=== PATIENT | female | born 1990 | race Caucasian/White ===

== ENCOUNTER → 2017-03-10 | Outpatient (CLI) | payer OTHER ==
[~2017-03-10] MED LIST: IBUPROFEN600 MG PO; NORCO 5-325 TA1 EACH PO
== END ==
LOC: LAB 11:14
DX: N91.2 Amenorrhea, unspecified (principal); R11.2 Nausea with vomiting, unspecified
CPT/HCPCS: 36415; 84702; 84703

== ENCOUNTER → 2021-04-17 | Outpatient (CLI) | payer OTHER ==
[~2021-04-17] MED LIST changes: +B-COMPLEX 100 I30 ML IM; +COLACE 100MG C100 MG PO; +IRON325 M1 PO; +KEFLEX CAP 500500 MG PO; +LORTAB 5-325 M1 EACH PO; +MACROBID 100 M100 MG PO; +PRENATAL VITAM1 EAC8 PO
== END ==
LOC: LAB 17:41
DX: Z32.00 Encounter for pregnancy test, result unknown (principal); O09.90 Supervision of high risk pregnancy, unspecified, unspecified trimester; O20.0 Threatened abortion
CPT/HCPCS: 84702

== ENCOUNTER → 2021-04-21 | Outpatient (CLI) | payer OTHER | LOC: LAB 10:29 | DX: Z32.01 Encounter for pregnancy test, result positive (principal) | CPT/HCPCS: 36415; 84702 ==

== ENCOUNTER 2021-10-20 14:32 | Outpatient (CLI) | payer OTHER | END 2021-10-20 18:23 | disposition home or self-care (01) | LOC: GENOP 14:32 | DX: O9A.213 Injury, poisoning and certain other consequences of external causes complicating pregnancy, third trimester (principal); S39.91XA Unspecified injury of abdomen, initial encounter; S39.92XA Unspecified injury of lower back, initial encounter; O36.8130 Decreased fetal movements, third trimester, not applicable or unspecified; Z3A.31 31 weeks gestation of pregnancy; W10.9XXA Fall (on) (from) unspecified stairs and steps, initial encounter | CPT/HCPCS: 81001; 83518; G0463 ==

== ENCOUNTER → 2021-11-18 | Outpatient (CLI) | payer OTHER ==
[~2021-11-18] VITALS: Ht 170.2 cm; Wt 67.6 kg
== END ==
LOC: OPSV 11:59
DX: O99.019 Anemia complicating pregnancy, unspecified trimester (principal); Z3A.00 Weeks of gestation of pregnancy not specified
CPT/HCPCS: 96365; J1756

== ENCOUNTER 2021-11-24 15:38 | Outpatient (CLI) | payer OTHER ==
[2021-11-24] MEDS ORDERED: ZOFRAN 4 MG TAB4 MG PO (19:43)
== END 2021-11-24 19:42 | disposition home or self-care (01) ==
LOC: GENOP 15:38
DX: O99.891 Other specified diseases and conditions complicating pregnancy (principal); O36.8130 Decreased fetal movements, third trimester, not applicable or unspecified; O16.3 Unspecified maternal hypertension, third trimester; N89.8 Other specified noninflammatory disorders of vagina; O21.2 Late vomiting of pregnancy; M54.9 Dorsalgia, unspecified; R25.2 Cramp and spasm; Z3A.36 36 weeks gestation of pregnancy
CPT/HCPCS: 83518; 96360; 96366; 96374; J2405; J7120

== ENCOUNTER → 2021-11-25 | Outpatient (CLI) | payer OTHER ==
[~2021-11-25] VITALS: Ht 170.2 cm; Wt 112.9 kg
[~2021-11-25] MED LIST changes: +ZOFRAN 4 MG TAB4 MG PO
== END ==
LOC: OPSV 11:33
DX: O99.019 Anemia complicating pregnancy, unspecified trimester (principal); D64.9 Anemia, unspecified; Z3A.00 Weeks of gestation of pregnancy not specified
CPT/HCPCS: 96365; J1756

== ENCOUNTER 2021-12-01 05:16 | Inpatient (IN) | payer OTHER ==
[~2021-12-01] VITALS: Ht 170.2 cm; Wt 112.9 kg
[2021-12-01 05:54] LABS: HEMOGLOBIN 9.1 gm/dl (12.3-15.3); RED BLOOD COUNT 4.16 M/UL (4.00-5.10); WHITE BLOOD COUNT 9.5 K/UL (4.5-11.0)
[2021-12-01 06:21] LABS: BUN/CREATININE RATIO 14 (0-10)
[2021-12-01] MEDS ORDERED: TYLENOL325 MG PO (06:26)
[2021-12-01] MEDS ORDERED: DOCUSATE SODIU100 MG PO (08:20)
[2021-12-01] MEDS ORDERED: HYDROCODON-ACE1 EAC4 PO (08:20)
[2021-12-01] MEDS ORDERED: IBUPROFEN600 MG PO (08:20)
[2021-12-02 06:19] LABS: HEMOGLOBIN 7.5 gm/dl (12.3-15.3)
[2021-12-02] MEDS ORDERED: FERROCITE324 MG PO (11:53)
== END 2021-12-02 17:53 | disposition home or self-care (01) | DRG 787 ==
LOC: OB 05:16
PROVIDERS: ADMIT Obstetrics & Gynecology
PROC: 10D00Z1 Extraction of Products of Conception, Low, Open Approach (ICD-10-PCS; 2021-12-01)
PROC: 3E0234Z Introduction of Serum, Toxoid and Vaccine into Muscle, Percutaneous Approach (ICD-10-PCS; principal; 2021-12-01 07:30)
DX: O10.92 Unspecified pre-existing hypertension complicating childbirth (principal); D62 Acute posthemorrhagic anemia; O34.211 Maternal care for low transverse scar from previous cesarean delivery; O99.02 Anemia complicating childbirth; D50.9 Iron deficiency anemia, unspecified; Z37.0 Single live birth; Z3A.37 37 weeks gestation of pregnancy; Z98.84 Bariatric surgery status; Z98.890 Other specified postprocedural states; Z23 Encounter for immunization; Z82.49 Family history of ischemic heart disease and other diseases of the circulatory system; Z82.0 Family history of epilepsy and other diseases of the nervous system; Z82.5 Family history of asthma and other chronic lower respiratory diseases; Z81.8 Family history of other mental and behavioral disorders; Z83.42 Family history of familial hypercholesterolemia; Z20.822 Contact with and (suspected) exposure to COVID-19
CPT/HCPCS: 36415; 80053; 81001; 82800; 85014; 85018; 85025; 85461; 86850; 86900; 86901; 90471; 90715; C9113; J0690; J1756; J1885; J2274; J2370; J2405; J2550; J2590; J2790; J3010; J7120

== ENCOUNTER → 2022-02-03 | Outpatient (CLI) | payer OTHER ==
[~2022-02-03] MED LIST changes: +DOCUSATE SODIU100 MG PO; +FERROCITE324 MG PO; +HYDROCODON-ACE1 EAC4 PO; +TYLENOL325 MG PO
== END ==
LOC: LAB 11:50
DX: Z32.00 Encounter for pregnancy test, result unknown (principal)
CPT/HCPCS: 36415; 84702